=== PATIENT | male | born 1980 | race American Indian/Alaskan Native ===

== ENCOUNTER 2019-03-10 07:34 | Emergency (ER) | payer BC ==
[2019-03-10 07:47] VITALS: TEMP 98.2; O2SAT 99
[2019-03-10 08:01] VITALS: BMI 24.4
--- NOTE | 2019-03-10 08:02 | ED PDOC ---
Arrival/HPI - General Historian: Patient - History of Present Illness Narrative History of Present Illness (Text): 03/10/19 08:21 Patient is a 38 yo AA male with no PMH who presents with chest pain. Patient states that he has felt chest "pressure" in his mid-left chest intermittently for over the past week. Patient states that pain occurs both at rest and during activity. It has not woken him from sleep. He states the pain lasts for a few seconds-minutes and resolves on its own. Patient rates the pain severity only 1- 1.5/10. Pain does not radiate. He endorses increased stress recently related to his job and relationship. 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 He denies personal and family history of heart disease. He quit smoking tobacco approx 5 months ago. He smokes marijuana daily. He denies headache, vision changes, SOB, palpitations, diaphoresis, and acid reflux symptoms. Time/Duration: > week Symptom Course: Intermittent Quality: Pressure Severity Level: 1, 2 Activities at Onset: Other (random) <Phyllis Munroe - Last Filed: 03/10/19 09:04> <Darwin Paz - Last Filed: 03/10/19 12:52> - General Chief Complaint: Chest Pain Time Seen by Provider: 03/10/19 07:36 Past Medical History - Provider Review Nursing Documentation Reviewed: Yes - Past History Past History: No Previous - Infectious Disease Hx of Infectious Diseases: None - Tetanus Immunization Tetanus Immunization: Unknown - Psychiatric Hx Substance Use: No - Anesthesia Hx Anesthesia: No <Phyllis Munroe - Last Filed: 03/10/19 09:04> Family/Social History - Physician Review Nursing Documentation Reviewed: Yes Family/Social History: No Known Family HX. denies: Hypertension, CAD/CO Smoking Status: Former Smoker Hx Alcohol Use: Yes Frequency of alcohol use: Socially Hx Substance Use: Yes Substance used: marijuana Route: Smoking/Inhalation <Phyllis Munroe - Last Filed: 03/10/19 09:04> Allergies/Home Meds <Phyllis Munroe - Last Filed: 03/10/19 09:04> <Darwin Paz - Last Filed: 03/10/19 12:52> Allergies/Adverse Reactions: Allergies No Known Allergies Allergy (Verified 03/10/19 07:55) Home Medications: Home Meds Medication Instructions Recorded Confirmed No Known Home Med 03/10/19 03/10/19 Review of Systems - Review of Systems Constitutional: absent: Fatigue, Weight Change, Fevers Eyes: absent: Vision Changes ENT: absent: Hearing Changes Respiratory: absent: SOB, Cough Cardiovascular: Chest Pain. absent: Palpitations, Edema Gastrointestinal: absent: Abdominal Pain, Constipation, Diarrhea, Nausea, Vomiting, Appetite Changes Genitourinary Male: absent: Dysuria, Hematuria Musculoskeletal: absent: Arthralgias Skin: absent: Rash, Pruritis, Skin Lesions Neurological: Headache (intermittent). absent: Dizziness, Focal Weakness Endocrine: absent: Diaphoresis Hemo/Lymphatic: absent: Adenopathy Psychiatric: Anxiety <Phyllis Munroe - Last Filed: 03/10/19 09:04> Physical Exam Vital Signs Reviewed: Yes Vital Signs Temp Pulse Resp BP Pulse Ox 03/10/19 07:42 98.2 F 80 18 134/80 99 Temperature: Afebrile Blood Pressure: Normal Pulse: Regular Respiratory Rate: Normal Appearance: Positive for: Well-Appearing, Non-Toxic, Comfortable Pain Distress: None Mental Status: Positive for: Alert and Oriented X 3 - Systems Exam Head: Present: Atraumatic, Normocephalic Pupils: Present: PERRL Extroacular Muscles: Present: EOMI Conjunctiva: Present: Normal Mouth: Present: Moist Mucous Membranes Neck: Present: Normal Range of Motion Respiratory/Chest: Present: Clear to Auscultation, Good Air Exchange Cardiovascular: Present: Regular Rate and Rhythm, Normal S1, S2, Other (tender to palpation left 2nd-3rd sternocostal joints). No: Murmurs Abdomen: No: Tenderness, Distention Back: Present: Normal Inspection Neurological: Present: GCS=15, CN II-XII Intact, Speech Normal Skin: Present: Warm, Dry, Normal Color Psychiatric: Present: Alert, Oriented x 3, Normal Insight, Normal Concentration <Phyllis Munroe Last Filed: 03/10/19 09:04> Vital Signs Temp Pulse Resp BP Pulse Ox 03/10/19 07:42 98.2 F 80 18 134/80 99 <Darwin Paz - Last Filed: 03/10/19 12:52> Medical Decision Making ED Course and Treatment: 03/10/19 08:20 EKG CXR Trop, CK CBC, CMP, Mg, Phos Re-evaluation Time: 09:02 Reassessment Condition: Re-examined, Improved - Lab Interpretations I have reviewed the lab results: Yes Interpretation: No clinic. lab abnormalty - RAD Interpretation Radiology Orders: CXR- unremarkable Haul Cane Brakeman: ED Physician - EKG Interpretation EKG Interpretation (Text): 03/10/19 08:21 EKG- NSR Interpreted by ED Physician: Yes Type: 12 lead EKG Comparison: No previous EKG avail. <Phyllis Munroe - Last Filed: 03/10/19 09:04> ED Course and Treatment: 03/10/19 08:41 Patient seen and examined with resident. Patient is a 38 year old M with chief complaint of chest pain. Nontender chest. - RAD Interpretation Radiology Orders: 03/10/19 08:02 CXR [CHEST PORTABLE] [RAD] Stat <Darwin Paz - Last Filed: 03/10/19 12:52> Disposition/Present on Arrival - Present on Arrival Any Indicators Present on Arrival: No History of DVT/PE: No History of Uncontrolled Diabetes: No Urinary Catheter: No History of Decub. Ulcer: No History Surgical Site Infection Following: None - Disposition Have Diagnosis and Disposition been Completed?: Yes Disposition Time: 09:04 Patient Plan: Discharge <Phyllis Munroe - Last Filed: 03/10/19 09:04> <Darwin Paz - Last Filed: 03/10/19 12:52> - Disposition Diagnosis: Chest pain Disposition: HOME/ ROUTINE Condition: GOOD Discharge Instructions (ExitCare): Chest Pain (ED) Additional Instructions: Follow-up with your primary care physician. Forms: [employer] (K[place])
[2019-03-10 08:41] LABS: BASO # 0.05 K/mm3 (0.0-2.0); BASO % 1.2 % (0.0-3.0); EOS # 0.2 (0.0-0.7); EOS % 5.1 % (1.5-5.0); LYMPH # 2.2 (1.2-3.4); LYMPH % 52.7 % (22.0-35.0); MEAN CELL VOLUME 85.1 fl (80.0-105.0); MEAN CORPUSCULAR HEMOGLOBIN 27.9 pg (25.0-35.0); MEAN CORPUSCULAR HGB CONC 32.8 g/dl (31.0-37.0); MEAN PLATELET VOLUME 8.9 fl (7.0-11.0); MONO # 0.3 (0.1-0.6); MONO % 6.9 % (1.0-6.0); RBC 5.02 10^6/uL (3.5-6.1); RED CELL DISTRIBUTION WIDTH 13.3 % (11.5-14.5); WHITE BLOOD COUNT 4.1 10^3/uL (4.5-11.0)
--- NOTE | 2019-03-10 08:45 | RAD ---
Date of service: 03/10/2019 HISTORY: chest pain COMPARISON: No prior. TECHNIQUE: 1 view obtained. FINDINGS: LUNGS: No active pulmonary disease. PLEURA: No significant pleural effusion identified, no pneumothorax apparent. CARDIOVASCULAR: No aortic atherosclerotic calcification present. Normal cardiac size. No pulmonary vascular congestion. OSSEOUS STRUCTURES: No significant abnormalities. VISUALIZED UPPER ABDOMEN: Normal. OTHER FINDINGS: None. IMPRESSION: No active disease.
[2019-03-10 08:53] LABS: ALB/GLOB RATIO 1.3 (1.1-1.8); ALBUMIN 4.4 g/dL (3.0-4.8); ALT/SGPT 34 U/L (7-56); AST/SGOT 40 U/L (17-59); BLOOD UREA NITROGEN 16 mg/dL (7-21); CALCIUM 9.1 mg/dL (8.4-10.5); GFR NON-AFRICAN AMERICAN > 60
[2019-03-10 09:00] LABS: TROPONIN I < 0.01 ng/mL
[2019-03-10 09:03] LABS: CK-MB 2.5 ng/mL (0.0-3.6)
[2019-03-10 09:15] VITALS: BP 122/74; PULSE 63; RESP 17
--- NOTE | 2019-03-10 16:47 | CARD ---
APPROVED REPORT Date of service: 03/10/2019 EKG Measurement Heart [id number] <Conclusion> Normal sinus rhythm Normal ECG
== END 2019-03-10 09:27 | disposition home or self-care (01) ==
LOC: ED 07:34
DX: R07.89 Other chest pain (principal); Z87.891 Personal history of nicotine dependence